=== PATIENT | male | born 1970 | race Caucasian/White ===

== ENCOUNTER 2017-06-30 09:18 | Emergency (ER) | payer OTHER ==
[2017-06-30 09:27] VITALS: BP 139/69
--- NOTE | 2017-06-30 10:41 | UC ---
Respiratory Complaint HPI - HPI Summary HPI Summary: 47 yo male with cough/sinus pressure and pain which has been worsening over past week no f/c fatigue no cp or sob now down in chest - History of Current Complaint Chief Complaint: UCGeneralIllness Stated Complaint: CONGESTION/NASAL ISSUES Time Seen by Provider: 06/30/17 10:24 Hx Obtained From: Patient Onset/Duration: Gradual Onset, Lasting Days Timing: Constant Severity Initially: Mild Severity Currently: Moderate Pain Intensity: 4 Pain Scale Used: 0-10 Numeric Character: Cough: Productive Aggravating Factors: Nothing Alleviating Factors: Nothing Associated Signs And Symptoms: Positive: Nasal Congestion, Sinus Discomfort - Allergies/Home Medications Allergies/Adverse Reactions: Allergies Allergy/AdvReac Type Severity Reaction Status Date / Time No Known Allergies Allergy Verified 06/30/17 09:23 PMH/Surg Hx/FS Hx/Imm Hx Previously Healthy: Yes - Surgical History Surgical History: Yes Surgery Procedure, Year, and Place: vasectomy - Family History Known Family History: Negative: Cardiac Disease, Hypertension, Diabetes - Social History Alcohol Use: Occasionally Substance Use Type: None Smoking Status (MU): Never Smoked Tobacco Review of Systems Constitutional: Fatigue Skin: Negative Eyes: Negative ENT: Nasal Discharge, Sinus Congestion, Sinus Pain/Tenderness Respiratory: Cough Cardiovascular: Negative Gastrointestinal: Negative Genitourinary: Negative Motor: Negative Neurovascular: Negative Musculoskeletal: Negative Neurological: Negative Psychological: Negative Is Patient Immunocompromised?: No All Other Systems Reviewed And Are Negative: Yes Physical Exam Triage Information Reviewed: Yes Appearance: Well-Appearing, No Pain Distress, Well-Nourished Vital Signs: Initial Vital Signs Temp 97 F 06/30/17 09:24 Pulse 71 06/30/17 09:24 Resp 16 06/30/17 09:24 BP 139/69 06/30/17 09:24 Pulse Ox 100 06/30/17 09:24 Vital Signs Reviewed: Yes Eyes: Positive: Conjunctiva Clear ENT: Positive: Hearing grossly normal, Pharyngeal erythema, Nasal congestion, Nasal drainage, Sinus tenderness, Uvula midline. Negative: Trismus, Muffled voice, Hoarse voice Dental Exam: Normal Neck: Positive: Supple, Nontender, No Lymphadenopathy Respiratory: Positive: No respiratory distress, Rhonchi - with forced expiration Cardiovascular: Positive: RRR, No Murmur Abdomen Description: Positive: Nontender, No Organomegaly Musculoskeletal: Positive: ROM Intact, No Edema Neurological: Positive: Alert Psychological Exam: Normal Skin Exam: Normal UC Diagnostic Evaluation - Laboratory O2 Sat by Pulse Oximetry: 100 - normal/not hypoxic Respiratory Course/Dx - Differential Dx/Diagnosis Provider Diagnoses: acute sinusitis. ? bronchitis Discharge - Discharge Plan Condition: Stable Disposition: HOME Prescriptions: Amoxicillin PO (*) [Amoxicillin 875 MG (*)] 875 mg PO BID #20 tab Fluticasone NASAL SPRAY 50MCG* [Flonase NASAL SPRAY 50MCG*] 2 spray BOTH NARES DAILY #1 btl Patient Education Materials: Sinusitis (ED) Referrals: Phill Galvan MD [Primary Care Provider] - 5 Days (if not better) Additional Instructions: warm facial compresses saline nasal spray twice daily (OTC)
== END 2017-06-30 10:45 | disposition home or self-care (01) ==
LOC: UCEAST 09:18
DX: J01.90 Acute sinusitis, unspecified (principal)
CPT/HCPCS: 99212; G0463

== ENCOUNTER 2019-03-09 07:46 | Emergency (ER) | payer OTHER ==
[2019-03-09 07:58] VITALS: BP 147/87
--- NOTE | 2019-03-09 08:17 | UC ---
Eye Complaint HPI - HPI Summary HPI Summary: 48-year-old male presents with right eye itchiness and redness since Tuesday. Patient states intermittent itchiness, and redness in his eye worse at night, awakening with some crusting on his eyelashes. No eye pain or visual problems. No fevers, no congestion. No left eye pain. Does not wear contacts - History of Current Complaint Chief Complaint: UCEye Stated Complaint: RT EYE ISSUE Time Seen by Provider: 03/09/19 07:56 Pain Intensity: 0 - Allergies/Home Medications Allergies/Adverse Reactions: Allergies Allergy/AdvReac Type Severity Reaction Status Date / Time No Known Allergies Allergy Verified 03/09/19 07:58 PMH/Surg Hx/FS Hx/Imm Hx Previously Healthy: Yes - Surgical History Surgical History: Yes Surgery Procedure, Year, and Place: vasectomy - Family History Known Family History: Negative: Cardiac Disease, Hypertension, Diabetes - Social History Occupation: Employed Full-time Alcohol Use: Occasionally Substance Use Type: None Smoking Status (MU): Never Smoked Tobacco Review of Systems All Other Systems Reviewed And Are Negative: Yes Eyes: Positive: Drainage, Eye Redness. Negative: Blurred Vision, Photophobia Physical Exam - Summary Physical Exam Summary: General: Well appearing, no distress HEENT: Injection of conjunctiva medially to right eye w perlimbic sparing, PERRL. EOMI. Cardiovascular: Skin is well perfused Pulmonary: No respiratory distress, no tachypnea Abdomen: Non-distended Skin: Warm, pink, dry Psych: Normal affect Neuro: A&Ox3 Vital Signs: Initial Vital Signs Temp 35.8 C 03/09/19 07:54 Pulse 67 03/09/19 07:54 Resp 18 03/09/19 07:54 BP 147/87 03/09/19 07:54 Pulse Ox 97 03/09/19 07:54 Eye Complaint Course/Dx - Course Course Of Treatment: 48-year-old male with a red eye 5 days associated with tearing and itchiness. Exam likely consistent with viral or allergic conjunctivitis, does not wear contacts. Discussed with patient that this is not likely bacterial. Given chronicity of symptoms we'll call in a prescription for Polytrim eyedrops he can bead picker if his symptoms do not improve with [id number] eyedrops by this weekend. Patient in agreement. - Differential Dx/Diagnosis Differential Diagnosis/HQI/PQRI: Conjunctivitis Provider Diagnosis: Conjunctivitis Discharge - Sign-Out/Discharge Documenting (check all that apply): Patient Departure All imaging exams completed and their final reports reviewed: No Studies - Discharge Plan Condition: Stable Disposition: HOME Prescriptions: Polymyx/Trimethoprim OPTH* [Polytrim OPHTH*] 1 drop BOTH EYES Q3H #1 btl Patient Education Materials: Conjunctivitis (ED) Referrals: Phill Galvan MD [Primary Care Provider] - Additional Instructions: You were seen in urgent care for a red itchy eye. This is most likely viral or allergic. Please use artificial tears for 2 days. If you have continued red eye, and discharge you can bead picker the Polytrim prescription from the pharmacy for conjunctivitis. - Billing Disposition and Condition Condition: STABLE Disposition: Home
== END 2019-03-09 08:19 | disposition home or self-care (01) ==
LOC: UCEAST 07:46
DX: H10.9 Unspecified conjunctivitis (principal)
CPT/HCPCS: 99212; G0463

== ENCOUNTER 2019-03-29 12:42 | Emergency (ER) | payer OTHER ==
[2019-03-29 12:56] VITALS: BP 137/70
--- NOTE | 2019-03-29 13:24 | ED ---
Neurological HPI - HPI Summary HPI Summary: 48 yr old male with onset of feeling off balance, nauseated and difficulty walking at 9 am today. He denies headache. He finished a core work out this morning, had breakfast and went to work; when in bathroom using the urinal he began to feel off balance and light headed. He denies headache, denies blur vision, denies focal weakness or numbness. He states he is not walking right. He does not feel well. He felt like he had congestion in the ear but that has passed. He has no URI symptoms. - History of Current Complaint Chief Complaint: UCDizziness Stated Complaint: GENERAL ILLNESS Time Seen by Provider: 03/29/19 13:12 Pain Intensity: 0 - Allergy/Home Medications Allergies/Adverse Reactions: Allergies Allergy/AdvReac Type Severity Reaction Status Date / Time No Known Allergies Allergy Verified 03/29/19 12:48 PMH/Surg Hx/FS Hx/Imm Hx - Surgical History Surgery Procedure, Year, and Place: vasectomy 2004 Infectious Disease History: No Infectious Disease History: Denies: Hx Clostridium Difficile, Hx Hepatitis, Hx Human Immunodeficiency Virus (HIV), Hx of Known/Suspected MRSA, Hx Shingles, Hx Tuberculosis, Hx Known/ Suspected VRE, Hx Known/Suspected VRSA, History Other Infectious Disease, Traveled Outside the [place] in Last 30 Days - Family History Known Family History: Positive: Diabetes - in father maturity onset Negative: Cardiac Disease, Hypertension - Social History Occupation: Employed Part-time Alcohol Use: Rare Substance Use Type: Reports: None Smoking Status (MU): Never Smoked Tobacco Review of Systems Constitutional: Negative Neurological: Other - off balance and vertigo All Other Systems Reviewed And Are Negative: Yes Physical Exam Triage Information Reviewed: Yes Vital Signs On Initial Exam: Initial Vitals Temp Pulse Resp BP Pulse Ox 96 F 49 16 137/70 96 03/29/19 12:49 03/29/19 12:49 03/29/19 12:49 03/29/19 12:49 03/29/19 12:49 Vital Signs Reviewed: Yes Appearance: Positive: Well-Appearing, No Pain Distress Skin: Positive: Warm, Skin Color Reflects Adequate Perfusion Head/Face: Positive: Normal Head/Face Inspection Eyes: Positive: EOMI ENT: Positive: Normal ENT inspection, TMs normal Neck: Positive: Nontender Respiratory/Lung Sounds: Positive: Clear to Auscultation, Breath Sounds Present Cardiovascular: Positive: RRR. Negative: Murmur Abdomen Description: Negative: Distended Musculoskeletal: Positive: Strength/ROM Intact Neurological: Positive: Sensory/Motor Intact, Alert, Oriented to Person Place, Time, CN Intact II-III, Finger to Nose - not accurate on left side compared to the right side., Ataxic Gait - falls toward the left Psychiatric: Positive: Normal AVPU Assessment: Alert Diagnostics - Vital Signs Vital Signs Temp Pulse Resp BP Pulse Ox 03/29/19 12:49 96 F 49 16 137/70 96 - Laboratory Lab Statement: Any lab studies that have been ordered have been reviewed, and results considered in the medical decision making process. Course/Dx - Course Course Of Treatment: 48 yr old with off balance gait; onset 9 am. Advised to [facility] ambulance. He refused ambulance and says he will go with his . Signed out AMA. - Diagnoses Provider Diagnoses: Ataxia Discharge - Sign-Out/Discharge Documenting (check all that apply): Patient Departure All imaging exams completed and their final reports reviewed: No Studies - Discharge Plan Condition: Good Disposition: AGAINST MEDICAL ADVICE Referrals: Phill Galvan MD [Primary Care Provider] - - Billing Disposition and Condition Condition: GOOD Disposition: Against Medical Advice
== END 2019-03-29 13:35 | disposition left against medical advice (07) ==
LOC: UCEAST 12:42
DX: R27.0 Ataxia, unspecified (principal)
CPT/HCPCS: 99212; G0463

== ENCOUNTER 2019-03-29 13:55 | Emergency (ER) | payer OTHER ==
[2019-03-29 15:18] LABS: ABS Eosinophils 0.1 10^3/ul (0-0.6); ABS Lymphocytes 1.1 10^3/ul (1.0-4.8); ABS Monocytes 0.4 10^3/ul (0-0.8); ABS Neutrophils 9.2 10^3/ul (1.5-7.7); Eosinophil % 0.6 %; Hematocrit 42 % (42-52); Hemoglobin 14.1 g/dL (14.0-18.0); Lymphocyte % 10.2 %; Mean Corpuscular HGB Conc 34 g/dL (31-36); Mean Corpuscular Hemoglobin 30 pg (27-31); Mean Corpuscular Volume 87 fL (80-94); Platelet Count 222 10^3/uL (150-450); Red Blood Count 4.76 10^6 /uL (4.18-5.48); Red Cell Distribution Width 13 % (10-15); White Blood Count 10.9 10^3/uL (3.5-10.8)
[2019-03-29 15:59] LABS: Albumin 4.5 g/dL (3.2-5.2); Albumin/Globulin Ratio 1.5 (1-3); Calcium 9.7 mg/dL (8.6-10.3); EGFR African American 97.3 (>60); EGFR Non-African American 80.4 (>60); Globulin 3.1 g/dL (2-4); Potassium 4.5 mmol/L (3.5-5.0); Total Bilirubin 0.5 mg/dL (0.2-1.0); Total Protein 7.6 g/dL (6.4-8.9)
--- NOTE | 2019-03-29 16:09 | ED ---
Dizziness - HPI Summary HPI Summary: A 48 y/o male presents to [facility] with a chief complaint of lightheadedness since 09:00 today. He says that when he was urinating at work today he felt lightheaded, nauseous, fatigue, and had an unsteady gait and was leaning to the left. He says that his vertigo worsened so he called his PCP but nobody could see him. He went to [facility] and was sent here. He says that he had some ear congestion in his right ear and less in his left ear since last night. He denies any fever, headache or tinnitus. He denies any visual changes today. No hx vertigo in the past. - History Of Current Complaint Chief Complaint: EDDizziness Stated Complaint: LIGHTHEADED NAUSEA PER PT Time Seen by Provider: 03/29/19 16:02 Hx Obtained From: Patient Onset/Duration: Suddenly Timing: Constant Severity Initially: Mild Severity Currently: Mild Character: Lightheaded Aggravating Factor(s): Nothing Alleviating Factor(s): Nothing Associated Signs And Symptoms: Positive: Nausea, Unsteady Gait - ASSISTED LIVING MANAGER. Negative : Visual Changes, Fever, Inability to Walk - Allergies/Home Medications Allergies/Adverse Reactions: Allergies Allergy/AdvReac Type Severity Reaction Status Date / Time No Known Allergies Allergy Verified 03/29/19 12:48 PMH/Surg Hx/FS Hx/Imm Hx - Surgical History Surgery Procedure, Year, and Place: vasectomy Infectious Disease History: No Infectious Disease History: Denies: Hx Clostridium Difficile, Hx Hepatitis, Hx Human Immunodeficiency Virus (HIV), Hx of Known/Suspected MRSA, Hx Shingles, Hx Tuberculosis, Hx Known/ Suspected VRE, Hx Known/Suspected VRSA, History Other Infectious Disease, Traveled Outside the [place] in Last 30 Days - Family History Known Family History: Positive: Diabetes - in father maturity onset Negative: Cardiac Disease, Hypertension - Social History Alcohol Use: Rare Substance Use Type: Reports: None Smoking Status (MU): Never Smoked Tobacco Review of Systems Positive: Fatigue. Negative: Fever Negative: Blurred Vision Positive: Other - positive: ear congestion on right, some on left Positive: Nausea Neurological: Other - positive: lightheadedness, unsteady gait All Other Systems Reviewed And Are Negative: Yes Physical Exam - Summary Physical Exam Summary: Constitutional: Well-developed, Well-nourished, Alert. (-) Distressed Skin: Warm, Dry HENT: Normocephalic; Atraumatic Eyes: Conjunctiva normal Neck: Musculoskeletal ROM normal neck. (-) JVD, (-) Nuchal rigidity Cardio: Rhythm regular, rate normal, Heart sounds normal; Intact distal pulses; Radial pulses are 2+ and symmetric. (-) Murmur Pulmonary/Chest wall: Effort normal. (-) Respiratory distress, (-) Wheezes, (-) Rales Abd: Soft. (-) Tenderness, (-) Distension, (-) Guarding, (-) Rebound Musculoskeletal: (-) Edema Lymph: (-) Cervical adenopathy Neuro: Alert, PERRL, Oriented x3, Strength normal, Cranial nerves II-XII are grossly intact. SILT, Strength 5/5 BUE and BLE, (-) Dysmetria, (-) Nystagmus, ambulates w steady gait. Psych: Mood and affect Normal Triage Information Reviewed: Yes Vital Signs On Initial Exam: Initial Vitals Temp Pulse Resp BP Pulse Ox 96.6 F 51 18 145/92 96 03/29/19 14:01 03/29/19 14:01 03/29/19 14:01 03/29/19 14:01 03/29/19 14:01 Vital Signs Reviewed: Yes - [place] Coma Scale Best Eye Response: 4 - Spontaneous Best Motor Response: 6 - Obeys Commands Best Verbal Response: 5 - Oriented Coma Scale Total: 15 Diagnostics - Vital Signs Vital Signs Temp Pulse Resp BP Pulse Ox 03/29/19 15:35 96.7 F 56 18 150/86 97 03/29/19 14:01 96.6 F 51 18 145/92 96 - Laboratory Lab Results: Lab Results 03/29/19 03/29/19 Range/Units 15:08 15:08 WBC 10.9 H (3.5-10.8) 10^3/uL RBC 4.76 (4.18-5.48) 10^6 /uL Hgb 14.1 (14.0-18.0) g/dL Hct 42 (42-52) % MCV 87 (80-94) fL MCH 30 (27-31) pg MCHC 34 (31-36) g/dL RDW 13 (10-15) % Plt Count 222 (150-450) 10^3/uL MPV 9.0 (7.4-10.4) fL Neut % (Auto) 84.9 % Lymph % (Auto) 10.2 % [place] % (Auto) 4.0 % Eos % (Auto) 0.6 % Baso % (Auto) 0.3 % Absolute Neuts (auto) 9.2 H (1.5-7.7) 10^3/ul Absolute Lymphs (auto) 1.1 (1.0-4.8) 10^3/ul Absolute Monos (auto) 0.4 (0-0.8) 10^3/ul Absolute Eos (auto) 0.1 (0-0.6) 10^3/ul Absolute Basos (auto) 0.0 (0-0.2) 10^3/ul Absolute Nucleated RBC 0.0 10^3/ul Nucleated RBC % 0.0 Sodium 137 (135-145) mmol/L Potassium 4.5 (3.5-5.0) mmol/L Chloride 104 (101-111) mmol/L Carbon Dioxide 27 (22-32) mmol/L Anion Gap 6 (2-11) mmol/L BUN 13 (6-24) mg/dL Creatinine 1.00 (0.67-1.17) mg/dL Est GFR ( Amer) 97.3 (>60) Est GFR (Non-Af Amer) 80.4 (>60) BUN/Creatinine Ratio 13.0 (8-20) Glucose 121 H (70-100) mg/dL Calcium 9.7 (8.6-10.3) mg/dL Total Bilirubin 0.50 (0.2-1.0) mg/dL AST 30 (13-39) U/L ALT 29 (7-52) U/L Alkaline Phosphatase 49 (34-104) U/L Troponin I 0.00 (<0.04) ng/mL Total Protein 7.6 (6.4-8.9) g/dL Albumin 4.5 (3.2-5.2) g/dL Globulin 3.1 (2-4) g/dL Albumin/Globulin Ratio 1.5 (1-3) Result Diagrams: 03/29/19 15:08 03/29/19 15:08 Lab Statement: Any lab studies that have been ordered have been reviewed, and results considered in the medical decision making process. - CT Brain CT Interpretation Completed By: Radiologist Summary of CT Findings: NO ACUTE INTRACRANIAL PATHOLOGY. ED physician has reviewed this imaging report. Brain MRI CT Interpretation Completed By: Radiologist Summary of CT Findings: Negative unenhanced MRI of the brain. ED physician has reviewed this imaging report. - EKG 14:06 Cardiac Rate: Bradycardia - 50 bpm EKG Rhythm: Sinus Bradycardia Summary of EKG Findings: An EKG done at 14:06 reveals sinus bradycardia at 50 bpm, nml axis, nml intervals. No STEMI. No acute changes. Re-Evaluation - Re-Evaluation First Eval Change: Improved - Patient's MRI was negative. Patient states his symptoms have resolved. He will get meclizine rx if needed in the future and can follow up with neurology if he has persistent symptoms. Dizzy Course/Dx - Course Assessment/Plan: 48 y/o male p/w vertigo. Suspect this is mostly peripheral given normal neuro exam, however patient is insistent that he feels like he is leaning to the left, therefore will check a head CT and workup for cerebellar stroke. Differential diagnosis includes: Cardiac causes - will check EKG, troponin. Electrolyte disturbances - will check CMP. Anemia - will check CBC. Posterior stroke/tia - will get CT head, if remaining workup negative will get MRI. Vertigo: differential includes Menniere's, labrynthitis (?infectious symptoms w congestion), BPPV - not positional or lasting minutes - Diagnoses Provider Diagnoses: Vertigo - Provider Notifications Discussed Care Of Patient With: Adebayo Antunez Time Discussed With Above Provider: 16:20 Instructed by Provider To: Other - agrees with MRI Discharge - Sign-Out/Discharge Documenting (check all that apply): Patient Departure - DC Patient Received Moderate/Deep Sedation with Procedure: No - Discharge Plan Condition: Stable Disposition: HOME Prescriptions: Meclizine TAB* [Antivert 12.5 TAB*] 25 mg PO TID PRN #20 tab PRN Reason: Vertigo Patient Education Materials: Vertigo (DC) Referrals: Phill Galvan MD [Primary Care Provider] - Adebayo Antunez MD [Medical Doctor] - If Needed Additional Instructions: You were seen in the emergency department for vertigo. You are head CT and MRI were normal. Yoyu can take meclizine as needed for vertigo. Follow up with neurology if you have persistent symptoms If any studies were not completed at the time of discharge you will be called with the relevant results. Please follow up with your primary care doctor in next 2-3 days and return to emergency department for worsening or concerning symptoms. - Billing Disposition and Condition Condition: STABLE Disposition: Home - Attestation Statements Document Initiated by Azalea: Yes Documenting Scribe: Daquan Coburn Provider For Whom Azalea is Documenting (Include Credential): Srinivasa Carter MD Scribe Attestation: I, Daquan Coburn, scribed for Srinivasa Carter MD on 03/29/19 at 1815. Scribe Documentation Reviewed: Yes Provider Attestation: The documentation as recorded by the Daquan newton accurately reflects the service I personally performed and the decisions made by me, Srinivasa Carter MD Status of Scribe Document: Viewed
[2019-03-29 18:29] VITALS: BP 118/59
== END 2019-03-29 17:50 | disposition home or self-care (01) ==
LOC: ED 13:55
DX: R42 Dizziness and giddiness (principal)
CPT/HCPCS: 36415; 70450; 70551; 80053; 84484; 85025; 93005; 99283